=== PATIENT | male | born 1975 | race Caucasian/White ===

== ENCOUNTER 2021-11-05 13:19 | Outpatient (CLI) | payer OTHER ==
[2021-11-05 13:29] LABS: BASOPHILS # (AUTO) 0.1 10^3/uL (0.0-0.1); BASOPHILS % (AUTO) 0.7 %; EOSINOPHILS # (AUTO) 0.1 10^3/uL (0.0-0.7); EOSINOPHILS % (AUTO) 1.9 %; HGB - HEMOGLOBIN 14.8 g/dL (14.0-18.0); LYMPHOCYTES # (AUTO) 2.6 10^3/uL (1.5-3.5); LYMPHOCYTES % (AUTO) 34.2 %; MEAN CORPUSCULAR HEMOGLOBIN 30.3 pg (27.0-31.0); MEAN CORPUSCULAR HGB CONC 35.2 g/dL (32.0-36.0); MEAN CORPUSCULAR VOLUME 85.9 fL (80.0-94.0); MEAN PLATELET VOLUME 8.4 fL (7.4-11.4); MONOCYTES # (AUTO) 0.5 10^3/uL (0.0-1.0); MONOCYTES % (AUTO) 6.9 %; NEUTROPHILS # (AUTO) 4.2 10^3/uL (1.5-6.6); NEUTROPHILS % (AUTO) 56.2 %; PLT - PLATELET COUNT 260 10^3/uL (130-450); RED BLOOD COUNT 4.89 10^6/uL (4.70-6.10); RED CELL DISTRIBUTION WIDTH 11.9 % (12.0-15.0); WHITE BLOOD COUNT 7.5 x10^3/uL (4.8-10.8)
[2021-11-05 13:40] LABS: ALBUMIN 4.9 g/dL (3.2-5.5); ALBUMIN/GLOBULIN RATIO 1.6 (1.0-2.2); BILIRUBIN,TOTAL 1.5 mg/dL (0.2-1.0); CALCIUM 9.6 mg/dL (8.5-10.3); CREATININE 0.8 mg/dL (0.6-1.2); POTASSIUM 4.4 mmol/L (3.5-5.0); TOTAL PROTEIN 7.9 g/dL (6.7-8.2)
== END 2021-11-05 13:20 | disposition home or self-care (01) ==
LOC: LAB 13:19
PROVIDERS: ATTEND Internal Medicine
DX: Z79.899 Other long term (current) drug therapy (principal); R13.10 Dysphagia, unspecified
CPT/HCPCS: 36415; 80053; 85025

== ENCOUNTER 2021-11-10 07:01 | Outpatient (CLI) | payer OTHER ==
[2021-11-10] MEDS ORDERED: IOVERSOL 320 100 ML VIAL IVP ONE ×2 (07:21→07:41)
--- NOTE | 2021-11-10 14:05 | CT Report ---
PROCEDURE: SOFT TISSUE NECK W INDICATIONS: DYSPHASA CONTRAST: IV CONTRAST: Optiray 320 ml: 100 PO CONTRAST: *NO PO CONTRAST TECHNIQUE: After the administration of intravenous contrast, 3.0 mm axial sections acquired from the sella to th e aortic arch. Additional oblique axial 3.0 mm sections acquired through the pharynx. 3 mm thick co ella reformats were generated. For radiation dose reduction, the following was used: automated exp osure control, adjustment of mA and/or kV according to patient size. COMPARISON: None. FINDINGS: Image quality: Excellent. Lymph nodes: No enlarged lymph nodes seen throughout the neck. Multiple scattered subcentimeter lym ph nodes are present. Vessels: Visualized vasculature appears patent. Neck spaces: There is an asymmetric soft tissue prominence within the posterior oropharynx/tonsillar region. No distinct mass is clearly identified. There is mild effacement of the airway. The vocal cor ds, false vocal cords, pyriform sinuses, epiglottis, vallecula, and tongue base all appear normal. E xtramucosal spaces appear unremarkable. Glands: The parotid and submandibular glands appear normal. The thyroid is normal in size and there are no incidental findings. Miscellaneous: Visualized brain and orbits appear normal. Lung apices appear clear. Superficial so ft tissues appear normal. Bones: No suspicious bony lesions. Visualized sinuses and mastoids appear unremarkable. IMPRESSION: Asymmetric soft tissue prominence within the left oropharynx/tonsillar region with effacement of the airway. While no discrete mass is identified, given asymmetric appearance, direct visualization by EN T is recommended. CLINICAL RECOMMENDATION STATEMENTS: In patients <35 years with an ITN detected on CT, MRI, or extrathyroidal ultrasound, the Committee re commends further evaluation with dedicated thyroid ultrasound if the nodule is "e1 cm and has no susp icious imaging features, and if the patient has normal life expectancy. In patients "e35 years with an ITN detected on CT, MRI, or extrathyroidal ultrasound, the Committee r ecommends further evaluation with dedicated thyroid ultrasound if the nodule is "e1.5 cm and has no s uspicious imaging features, and if the patient has normal life expectancy. (ACR, 2014) Reviewed by: Meg Ardon MD on 11/10/2021 2:03 PM PDT Approved by: Meg Ardon MD on 11/10/2021 2:03 PM PDT Station ID: [id number]
== END 2021-11-10 07:02 | disposition home or self-care (01) ==
LOC: DI 07:01
PROVIDERS: ATTEND Internal Medicine
DX: M54.2 Cervicalgia (principal); R13.10 Dysphagia, unspecified
CPT/HCPCS: 70491; Q9967

== ENCOUNTER 2022-06-28 12:54 | Emergency (ER) | payer BC ==
[2022-06-28 13:49] LABS: BASOPHILS # (AUTO) 0.1 10^3/uL (0.0-0.1); BASOPHILS % (AUTO) 0.7 %; EOSINOPHILS # (AUTO) 0.2 10^3/uL (0.0-0.7); EOSINOPHILS % (AUTO) 2.6 %; HGB - HEMOGLOBIN 13.6 g/dL (14.0-18.0); LYMPHOCYTES # (AUTO) 2.6 10^3/uL (1.5-3.5); LYMPHOCYTES % (AUTO) 38.4 %; MEAN CORPUSCULAR HEMOGLOBIN 28.9 pg (27.0-31.0); MEAN CORPUSCULAR HGB CONC 33.2 g/dL (32.0-36.0); MEAN CORPUSCULAR VOLUME 87.2 fL (80.0-94.0); MEAN PLATELET VOLUME 8.3 fL (7.4-11.4); MONOCYTES # (AUTO) 0.5 10^3/uL (0.0-1.0); MONOCYTES % (AUTO) 7.6 %; NEUTROPHILS # (AUTO) 3.4 10^3/uL (1.5-6.6); NEUTROPHILS % (AUTO) 50.6 %; PLT - PLATELET COUNT 248 10^3/uL (130-450); RED CELL DISTRIBUTION WIDTH 11.9 % (12.0-15.0); WHITE BLOOD COUNT 6.8 x10^3/uL (4.8-10.8)
[2022-06-28 14:05] LABS: ALBUMIN 4.6 g/dL (3.2-5.5); ALBUMIN/GLOBULIN RATIO 1.8 (1.0-2.2); BILIRUBIN,TOTAL 1.7 mg/dL (0.2-1.0); CALCIUM 9.3 mg/dL (8.5-10.3); CREATININE 1.1 mg/dL (0.6-1.2); TOTAL PROTEIN 7.2 g/dL (6.7-8.2)
--- NOTE | 2022-06-28 15:18 | ED Physician Documentation ---
PD HPI ABD PAIN - Stated complaint Stated Complaint: LT SIDE PX - Chief complaint Chief Complaint: Abd Pain - History obtained from History obtained from: Patient - History of Present Illness Timing - onset: How many weeks ago (1) Timing - duration: Weeks (1) Timing - details: Gradual onset, Still present (much worse today.), Waxing and waning Quality: Cramping, Aching, Pain Location: LUQ Radiation: Left flank Improved by: BM, Other (has not had bm for past 3-4 days and only small firm ones prior to that for past week.). No: Eating Worsened by: Palpation. No: Eating Associated symptoms: Constipation. No: Fever, Nausea, Vomiting, Diarrhea, Dysuria Similar symptoms before: Has not had sx before Recently seen: Not recently seen Review of Systems Constitutional: denies: Fever, Chills Nose: denies: Rhinorrhea / runny nose, Congestion Throat: denies: Sore throat Respiratory: denies: Cough GI: reports: Abdominal Pain, Constipation. denies: Nausea, Vomiting, Bloody / black stool : denies: Dysuria, Frequency Skin: denies: Rash, Lesions PD PAST MEDICAL HISTORY - Past Medical History Cardiovascular: Hypertension Psych: Depression, Anxiety - Past Surgical History Ortho: Other - Present Medications Home Medications: Ambulatory Orders Medication Instructions Recorded Confirmed Metformin HCl 500 mg PO BIDWM 09/30/18 06/28/22 PARoxetine [Paxil] 20 mg PO QPM 09/30/18 06/28/22 lisinopriL [Lisinopril] 20 mg PO DAILY 09/30/18 06/28/22 Docusate Sodium 100Mg Capsule 100 mg PO DAILY #20 cap 06/28/22 [Colace 100Mg Capsule] Glipizide [Glipizide Xl] 5 mg PO DAILY 06/28/22 06/28/22 Rosuvastatin Calcium [Crestor] 10 mg PO HS 06/28/22 06/28/22 polyethylene glycoL 3350 [Miralax] 17 gm PO DAILY PRN #1 each 06/28/22 - Allergies Allergies/Adverse Reactions: Allergies Allergy/AdvReac Type Severity Reaction Status Date / Time No Known Drug Allergies Allergy Verified 06/28/22 13:37 - Social History Smoking Status: Never smoker PD ED PE NORMAL - Vitals Vital signs reviewed: Yes - General General: Alert and oriented X 3, No acute distress, Well developed/nourished - Cardiac Cardiac: RRR, No murmur - Respiratory Respiratory: Clear bilaterally - Abdomen Abdomen: Normal bowel sounds, Soft, Non distended, No organomegaly, Other (tender left abd upper more than lower. Not tender right abd. No percussion tenderness. Mild local rebound. ) - Male Male : Deferred - Rectal Rectal: Deferred - Back Back: No CVA TTP - Derm Derm: Normal color, Warm and dry, No rash - Extremities Extremities: No tenderness to palpate, Normal ROM s pain - Neuro Neuro: Alert and oriented X 3, No motor deficit, Normal speech Results - Vitals Vitals: Vital Signs - 24 hr 06/28/22 06/28/22 06/28/22 13:34 15:37 16:38 Temperature 36.0 C L Heart Rate 75 76 68 Respiratory 16 16 18 Rate Blood Pressure 168/93 H 156/102 H 151/101 H O2 Saturation 100 99 100 Oxygen O2 Source Room air - Labs Labs: Laboratory Tests 06/28/22 06/28/22 06/28/22 13:40 13:45 13:45 WBC 6.8 RBC 4.70 Hgb 13.6 L Hct 41.0 L MCV 87.2 MCH 28.9 MCHC 33.2 RDW 11.9 L Plt Count 248 MPV 8.3 Neut # (Auto) 3.4 Lymph # (Auto) 2.6 [place] # (Auto) 0.5 Eos # (Auto) 0.2 Baso # (Auto) 0.1 Absolute Nucleated RBC 0.00 Nucleated RBC % 0.0 Sodium 137 Potassium 4.0 Chloride 101 Carbon Dioxide 25 Anion Gap 11.0 BUN 17 Creatinine 1.1 Estimated GFR (MDRD) 71 L Glucose 257 H Calcium 9.3 Total Bilirubin 1.7 H AST 37 ALT 51 Alkaline Phosphatase 40 L Total Protein 7.2 Albumin 4.6 Globulin 2.6 Albumin/Globulin Ratio 1.8 Lipase 43 Urine Color YELLOW Urine Clarity CLEAR Urine pH 7.0 Ur Specific [employer] 1.020 Urine Protein TRACE Urine Glucose (UA) 250 H Urine Ketones NEGATIVE Urine Occult Blood NEGATIVE Urine Nitrite NEGATIVE Urine Bilirubin NEGATIVE Urine Urobilinogen 1 (NORMAL) Ur Leukocyte Esterase NEGATIVE Ur Microscopic Review NOT INDICATED Urine Culture Comments NOT INDICATED - Rads (name of study) abd/pelvic CT Radiology: Prelim report reviewed (no acute findings. ), See rad report PD MEDICAL DECISION MAKING - ED course Complexity details: reviewed results (no findings on labs/cT - presume relates to the constipation. ), re-evaluated patient, considered differential (1 week of left abd pain, now worse. Consider diverticulitis, kidney stone, colitis, splenic infarct or bleed, etc. ), d/w patient Departure - Departure Disposition: 01 Home, Self Care Clinical Impression: Left lateral abdominal pain Constipation Qualifiers: Constipation type: unspecified constipation type Qualified Code(s): K59.00 - Constipation, unspecified Condition: Stable Record reviewed to determine appropriate education?: Yes Instructions: ED Constipation, ED Abdominal Pain Unkn Cause Male Follow-Up: Mick Dean DO [Primary Care Provider] - Prescriptions: Docusate Sodium 100Mg Capsule [Colace 100Mg Capsule] 100 mg PO DAILY #20 cap polyethylene glycoL 3350 [Miralax] 17 gm PO DAILY PRN #1 each PRN Reason: Constipation Comments: Your blood test did not show any acute abnormality. This is true of your urine test as well. Your CT scan is read as normal without any signs of diverticulitis, colitis, kidney stones, organ injury, bowel obstructions or perforations. No clear cause of your pain is identified on the testing. Things that would not show on testing that can still hurt would be stretching of the intestine from constipation which may be the most likely given your lack of stool output over the last several days. Musculoskeletal pain skin her it did not show up there as well though your character of your pain does not sound muscular per se. At this point I would focus on stool output with a stool softener such as MiraLAX. You can use 1 6 glassful (17 g dose) every 1-2 hours until you start having soft stool output. Do not continue beyond that as you do not really need to over cleanse. After that use a stool softener such as docusate daily for the next 2 to 3 weeks. We did give you a initial dose of a stool softener and laxative here and that hopefully will get things started. Tylenol and/or ibuprofen if needed for pains. Recheck if not fully improved over the next few days. Follow-up with your primary care for potential referral for colonoscopy if you find this to be a recurring problem over the next weeks or months. Discharge Date/Time: 06/28/22 17:36
[2022-06-28] MEDS ORDERED: KETOROLAC 15 MG/ML VIAL IVP STA (15:34)
[2022-06-28] MEDS ORDERED: HYDROmorphone 1 MG/ML CARPUJECT IVP STA (15:34)
[2022-06-28] MEDS ORDERED: SODIUM CHLORIDE 0.9% 1,000 ML IV STA (15:34)
[2022-06-28] MEDS ORDERED: iohexoL-300 100 ML VIAL ONE (15:37)
[2022-06-28 15:50] LABS: BILIRUBIN,URINE NEGATIVE (NEGATIVE); GLUCOSE, URINE (UA) 250 mg/dL (NEGATIVE); KETONES,URINE (UA) NEGATIVE (NEGATIVE); LEUKOCYTE ESTERASE, URINE NEGATIVE (NEGATIVE); NITRITE,URINE NEGATIVE (NEGATIVE); OCCULT BLOOD,URINE NEGATIVE (NEGATIVE); PROTEIN,URINE TRACE mg/dL (NEGATIVE); UROBILINOGEN,URINE 1 (NORMAL) E.U./dL (NORMAL)
[2022-06-28 15:52] LABS: CLARITY,URINE CLEAR (CLEAR)
[2022-06-28] MEDS ORDERED: iohexoL-300 100 ML VIAL IVP ONE (16:04)
--- NOTE | 2022-06-28 16:22 | CT Report ---
PROCEDURE: CT abdomen pelvis with contrast INDICATIONS: left abd pain CONTRAST: 100ml omni 300 TECHNIQUE: After the administration of contrast, 5 mm thick sections acquired from the diaphragms to the sym physis. 5 mm thick coronal and sagittal reformats were acquired. For radiation dose reduction, the following was used: automated exposure control, adjustment of mA and/or kV according to patient size . COMPARISON: None. FINDINGS: Image quality: Excellent. ABDOMEN: Lung bases: Lung bases are clear. Heart size is normal. Solid organs: Liver and spleen are normal in size and enhancement. Liver shows a generalized decreas ed attenuation Gallbladder Biliary system is non dilated. Pancreas enhances normally. No adren al nodules. Kidneys demonstrate normal size and enhancement, without hydronephrosis. Peritoneum and bowel: Bowel loops demonstrate normal wall thickness and caliber. No free fluid or a ir. Nodes and vessels: No retroperitoneal or mesenteric adenopathy by size criteria. Aorta and inferior vena cava are normal in size. Miscellaneous: No ventral hernias. PELVIS: Genitourinary: Bladder wall thickness is normal. Miscellaneous: No inguinal hernias or adenopathy. Bones: No suspicious bony lesions. No vertebral body compression fractures. IMPRESSION: Hepatic fatty infiltration. No acute CT findings in the abdomen and pelvis. Reviewed by: Leodan Riley MD on 06/28/2022 3:21 PM [facility] Approved by: Leodan Riley MD on 06/28/2022 3:21 PM [facility] Station ID: [id number]
[2022-06-28] MEDS ORDERED: LACTULOSE 10 GM /15 ML UDC PO STA (16:36)
[2022-06-28] MEDS ORDERED: DOCUSATE SODIUM 100 MG CAPSULE PO STA (16:36)
[2022-06-28] MEDS ORDERED: BISACODYL 10 MG SUPP PR STA (16:37)
[2022-06-28 16:38] VITALS: BP 151/101
== END 2022-06-28 17:36 | disposition home or self-care (01) ==
LOC: ED 12:54
DX: R10.12 Left upper quadrant pain (principal); K59.00 Constipation, unspecified
CPT/HCPCS: 36415; 74177; 80053; 81003; 83690; 85025; 96361; 96374; 96375; 99282; 99284; A9270; J1170; Q9967; 81001; 87086

== ENCOUNTER 2023-12-19 12:09 | Emergency (ER) | payer BC, OTHER ==
[2023-12-19 12:43] LABS: BASOPHILS % (AUTO) 0.4 %; EOSINOPHILS # (AUTO) 0.2 10^3/uL (0.0-0.7); EOSINOPHILS % (AUTO) 1.6 %; HCT - HEMATOCRIT 42.1 % (42.0-52.0); HGB - HEMOGLOBIN 14.4 g/dL (14.0-18.0); LYMPHOCYTES % (AUTO) 21.3 %; MEAN CORPUSCULAR HEMOGLOBIN 29.6 pg (27.0-31.0); MEAN CORPUSCULAR HGB CONC 34.2 g/dL (32.0-36.0); MEAN CORPUSCULAR VOLUME 86.6 fL (80.0-94.0); MEAN PLATELET VOLUME 8.6 fL (7.4-11.4); MONOCYTES # (AUTO) 0.7 10^3/uL (0.0-1.0); MONOCYTES % (AUTO) 7.5 %; NEUTROPHILS # (AUTO) 6.6 10^3/uL (1.5-6.6); PLT - PLATELET COUNT 255 10^3/uL (130-450); RED BLOOD COUNT 4.86 10^6/uL (4.70-6.10); RED CELL DISTRIBUTION WIDTH 11.8 % (12.0-15.0); WHITE BLOOD COUNT 9.5 x10^3/uL (4.8-10.8)
[2023-12-19 13:13] LABS: ALBUMIN 4.6 g/dL (3.2-5.5); ALBUMIN/GLOBULIN RATIO 2.1 (1.0-2.2); BILIRUBIN,TOTAL 1.7 mg/dL (0.2-1.0); CALCIUM 9.6 mg/dL (8.5-10.3); CREATININE 1.1 mg/dL (0.6-1.3); POTASSIUM 5.2 mmol/L (3.5-4.5); TOTAL PROTEIN 6.8 g/dL (6.4-8.9)
--- NOTE | 2023-12-19 15:16 | ED Physician Documentation ---
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 He presents today with pain in the specific muscle area and radiation of the pain down his left leg. He has numbness to the bottom of his foot. He has a history of diabetes and he reports that he has used a zakiya for monitoring his blood glucose he has not had this on for the past week. Reports getting up to the bathroom 3-4 times per night. He is on metformin and glipizide. Review of Systems Constitutional: denies: Fever Eyes: denies: Decreased vision Ears: denies: Ear pain Nose: denies: Congestion Throat: denies: Sore throat Respiratory: denies: Cough GI: denies: Abdominal Pain, Nausea, Vomiting, Constipation, Diarrhea : reports: Other (To the bathroom 3-4 times per night). denies: Dysuria, Frequency Skin: denies: Rash Musculoskeletal: reports: Back pain, Extremity pain. denies: Neck pain Neurologic: reports: Numbness (To the bottom of the left foot). denies: Generalized weakness, Focal weakness PD PAST MEDICAL HISTORY - Past Medical History Cardiovascular: Hypertension Respiratory: None Neuro: None Endocrine/Autoimmune: Type 2 diabetes GI: None : None HEENT: None Psych: Depression, Anxiety Musculoskeletal: None Derm: None - Past Surgical History Past Surgical History: No Ortho: Other - Present Medications Home Medications: Ambulatory Orders Medication Instructions Recorded Confirmed Metformin HCl 500 mg PO BIDWM 09/30/18 06/28/22 PARoxetine [Paxil] 20 mg PO QPM 09/30/18 06/28/22 lisinopriL [Lisinopril] 20 mg PO DAILY 09/30/18 06/28/22 Docusate Sodium 100Mg Capsule 100 mg PO DAILY #20 cap 06/28/22 [Colace 100Mg Capsule] Glipizide [Glipizide Xl] 5 mg PO DAILY 06/28/22 06/28/22 Rosuvastatin Calcium [Crestor] 10 mg PO HS 06/28/22 06/28/22 polyethylene glycoL 3350(BULK) 17 gm PO DAILY PRN #1 each 06/28/22 [Miralax] Cyclobenzaprine [Flexeril] 10 mg PO TID PRN #20 tablet 12/19/23 HYDROcod/ACETAM 5/325 [[place] 5/325] 1 - 2 tablet PO Q6H PRN #14 tablet 12/19/23 - Allergies Allergies/Adverse Reactions: Allergies Allergy/AdvReac Type Severity Reaction Status Date / Time No Known Drug Allergies Allergy Verified 12/19/23 12:26 - Social History Does the pt smoke?: No Smoking Status: Never smoker Does the pt drink ETOH?: Yes Does the pt have substance abuse?: No - Immunizations Immunizations are current?: Yes PD ED PE NORMAL - Vitals Vital signs reviewed: Yes (Hypertensive) - General General: Alert and oriented X 3, Well developed/nourished, Other (Patient is laying on the gurney with his left leg pulled up to his chest. This is his position of comfort.) - HEENT HEENT: Atraumatic, PERRL, EOMI - Respiratory Respiratory: No respiratory distress - Back Back: No CVA TTP, No spinal TTP, Other (There is point tenderness to the latissimus at the insertion to the iliac and ischium. 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, No motor deficit, Normal speech Eye Opening: Spontaneous Motor: Obeys Commands Verbal: Oriented GCS Score: 15 - Psych Psych: Normal mood, Normal affect Results - Vitals Vitals: Vital Signs - 24 hr 12/19/23 12/19/2324 12:24 14:26 16:00 Temperature 36.7 C Heart Rate 91 94 74 Respiratory 22 22 19 Rate Blood Pressure 161/109 H 150/93 H 141/96 H O2 Saturation 98 100 97 Oxygen O2 Source Room air - Labs Labs: Laboratory Tests 12/19/23 12/19/23 12/19/23 12:36 12:36 16:41 WBC 9.5 RBC 4.86 Hgb 14.4 Hct 42.1 MCV 86.6 MCH 29.6 MCHC 34.2 RDW 11.8 L Plt Count 255 MPV 8.6 Neut # (Auto) 6.6 Lymph # (Auto) 2.0 Rhea # (Auto) 0.7 Eos # (Auto) 0.2 Baso # (Auto) 0.0 Absolute Nucleated RBC 0.00 Nucleated RBC % 0.0 Sodium 131 L Potassium 5.2 H Chloride 97 L Carbon Dioxide 26 Anion Gap 8.0 BUN 25 H Creatinine 1.1 Estimated GFR (MDRD) 71 L Glucose 410 H Calcium 9.6 Total Bilirubin 1.7 H AST 21 ALT 36 Alkaline Phosphatase 47 Total Protein 6.8 Albumin 4.6 Globulin 2.2 Albumin/Globulin Ratio 2.1 Lipase 121 H Urine Color YELLOW Urine Clarity CLEAR Urine pH 6.0 Ur Specific [place] 1.010 Urine Protein NEGATIVE Urine Glucose (UA) >=1000 H Urine Ketones TRACE Urine Occult Blood NEGATIVE Urine Nitrite NEGATIVE Urine Bilirubin NEGATIVE Urine Urobilinogen 0.2 (NORMAL) Ur Leukocyte Esterase NEGATIVE Ur Microscopic Review NOT INDICATED Urine Culture Comments NOT INDICATED Procedures - IVC sono (time) 1513 Bedside IVC sono: IVC measures (cm) (1.0), Dehydration (est 1-2 liter deficit) PD Medical Decision Making - ED course Complexity details: reviewed results, re-evaluated patient, considered differential, d/w patient, d/w family Reviewed Lab Results: We reviewed a complete blood count showing a normal white blood cell count norm al hemoglobin hematocrit and platelets chemistries were abnormal with a serum sodium of 131 potassium high at 5.2 chloride low at 97 BUN elevated at 25 creatinine normal at 1.1 glucose was markedly elevated at 410. Total bilirubin mildly elevated at 1.7. I interpreted these laboratory test indicate the patient has a problem with his diabetes and is likely dehydrated. This was confirmed by interrogation of the IVC with POCUS. ED course: 48-year-old Mick Quinones presents to the emergency department with sciatica and a descriptive pain to the left lower paraspinous muscles. I considered treatment with dexamethasone and Toradol and after I reviewed the patient's history and his laboratory studies I decided against the use of the dexamethasone secondary to its poor performance in a patient with diabetes. He has likely become more dehydrated associated with this use. The patient is dehydrated enough to consider IV hydration this will likely help with the pa aubrey's care. He has consented to use of IV fluid. He is administered a liter of saline and 30 mg of Toradol IV. He has inadequate pain relief with this and he is administered Dilaudid and Zofran as well. Departure - Departure Disposition: 01 Home, Self Care Clinical Impression: Sciatica of left side Instructions: ED Sciatica Follow-Up: Asa Segal MD [Provider Admit Priv/Credential] - Prescriptions: Cyclobenzaprine [Flexeril] 10 mg PO TID PRN #20 tablet PRN Reason: Spasms HYDROcod/ACETAM 5/325 [[place] 5/325] 1 - 2 tablet PO Q6H PRN #14 tablet PRN Reason: Pain Comments: Mick, today it looks like you have sciatica which is a pinched nerve usually related to some disc disease. We were unable to give you a dose of dexamethasone today and if you are pain persists you may eventually require MRI in anticipation of epidural steroid injection and if this occurs you will likely need a different agent for treatment of your diabetes. Today we are providing you with some pain medication a muscle relaxant which has been E scribed to the [facility] in [place]. My recommendation for this next week is to avoid any excessive lifting and in general offload your back. It is important to continue to move around. Stretching is indicated. I have given you a note for work for 3 days. Forms: Activity restrictions
[2023-12-19] MEDS: KETOROLAC 30 MG/ML VIAL IVP STA (15:29)
[2023-12-19] MEDS: SODIUM CHLORIDE 0.9% 1,000 ML IV STA (15:30)
[2023-12-19] MEDS: HYDROmorphone 1 MG/ML CARPUJECT IVP STA (16:25)
[2023-12-19] MEDS: ONDANSETRON 4 MG/2 ML VIAL IVP STA (16:26)
[2023-12-19 16:44] LABS: BILIRUBIN,URINE NEGATIVE (NEGATIVE); CLARITY,URINE CLEAR (CLEAR); GLUCOSE, URINE (UA) >=1000 mg/dL (NEGATIVE); KETONES,URINE (UA) TRACE mg/dL (NEGATIVE); LEUKOCYTE ESTERASE, URINE NEGATIVE (NEGATIVE); NITRITE,URINE NEGATIVE (NEGATIVE); OCCULT BLOOD,URINE NEGATIVE (NEGATIVE); PROTEIN,URINE NEGATIVE (NEGATIVE); UROBILINOGEN,URINE 0.2 (NORMAL) E.U./dL (NORMAL)
[2023-12-19 17:47] VITALS: BP 155/99; O2SAT 98
== END 2023-12-19 17:49 | disposition home or self-care (01) ==
LOC: ED 12:09
DX: M54.32 Sciatica, left side (principal); E86.0 Dehydration; E11.65 Type 2 diabetes mellitus with hyperglycemia; Z79.84 Long term (current) use of oral hypoglycemic drugs
CPT/HCPCS: 36415; 80053; 81003; 83690; 85025; 96361; 96374; 96375; 99283; 99284; J1170; 81001; 87086